=== PATIENT | male | born 1955 | race Caucasian/White ===

== ENCOUNTER 2019-04-06 12:15 | Day surgery (SDC) | payer OTHER ==
[~2019-04-06] VITALS: Ht 167.6 cm; Wt 113.0 kg
[2019-04-06] VITALS (8 sets, daily range): BP systolic 103–131; BP diastolic 64–79; PULSE 88–104; RESP 13–18; Ht 167.6 cm; Wt 113.0 kg
[~2019-04-06 12:15] MED LIST: CEFAZOLIN 2 GM/50 ML (PMX) 50 ML IVPB ONE; ERTU15TA PO; FELO10TA PO; FELO2.5T3 PO; GLYB5TAB3 PO; HYDR-3980 PO; INSU100I33 SC; LACTATED RINGER'S 1,000 ML (ENTER RATE) IV ONE; LISI10TA2 PO; LISI40TA3 PO; MELO7.5T38 PO; METF-849 PO; METF100010 PO; SIMV40TA2 PO; SIMV40TA3 PO
[2019-04-06] MEDS ORDERED: SOD CHLORIDE 0.9% 1,000 ML IV SCH (13:30)
[2019-04-06] MEDS ORDERED: BUPIVACAINE 0.5% (SDV) 30 ML INJ ONE ×2 (15:33→16:01)
[2019-04-06] MEDS ORDERED: LIDOCAINE 2% (SDV) 5 ML INJ ONE (15:47)
[2019-04-06] MEDS ORDERED: ROCURONIUM 50 MG INJ ONE (15:47)
[2019-04-06] MEDS ORDERED: PROPOFOL 20 ML ONE (15:47)
[2019-04-06] MEDS ORDERED: DESFLURANE 15 MIN ONE (15:47)
[2019-04-06] MEDS ORDERED: FENTAnyl 50 MCG/ML VIAL ONE (15:47)
[2019-04-06] MEDS ORDERED: ONDANSETRON 4 MG INJ ONE (15:59)
[2019-04-06] MEDS ORDERED: CEFAZOLIN 1 GM INJ ONE (15:59)
[2019-04-06] MEDS ORDERED: ONDANSETRON 4 MG INJ IV PRN (16:00)
[2019-04-06] MEDS ORDERED: HYDROmorphONE 1 MG/5 ML IV SYRINGE IV PRN ×2 (16:00)
[2019-04-06] MEDS ORDERED: hydrALAzine 20 MG INJ IV PRN (16:00)
[2019-04-06] MEDS ORDERED: MEPERIDINE 25 MG INJ IV PRN (16:00)
[2019-04-06] MEDS ORDERED: LABETALOL HCL 20MG INJ IV PRN (16:00)
[2019-04-06] MEDS ORDERED: POLYMYXIN/BACITRACIN 1L IRRIG IRR ONE (16:09)
[2019-04-06] MEDS ORDERED: SUGAMMADEX SODIUM 200 MG/2 ML VIAL IV ONE (16:39)
== END 2019-04-06 19:00 | disposition home or self-care (01) ==
LOC: SDS 12:15
PROVIDERS: ATTEND Orthopaedic Surgery Hand Surgery
DX: M65.331 Trigger finger, right middle finger (principal); M65.841 Other synovitis and tenosynovitis, right hand; I10 Essential (primary) hypertension; E11.9 Type 2 diabetes mellitus without complications; E66.01 Morbid (severe) obesity due to excess calories; Z68.41 Body mass index [BMI] 40.0-44.9, adult; Z79.4 Long term (current) use of insulin
CPT/HCPCS: 26055; 80053; 82962; 85025; 85610; 85730; J0690; J2405; J3010